=== PATIENT | female | born 1970 | race Hispanic/Latino ===

== ENCOUNTER 2018-08-25 10:03 | Emergency (ER) | payer OTHER ==
[~2018-08-25] VITALS: Ht 162.6 cm; Wt 72.6 kg
[2018-08-25] MEDS ORDERED: ONDANSETRON HCL INJ 2MG/ML 2ML 2 MG/ML VIAL IV STA (10:25)
[2018-08-25] MEDS ORDERED: KETOROLAC TROMETHAMINE 30 MG/ML VIAL IV STA (10:25)
[2018-08-25] MEDS ORDERED: SODIUM CHLORIDE 0.9% 1000ML 1,000 ML IV SCH ×2 (10:30→11:00)
[2018-08-25] MEDS ORDERED: ONDANSETRON HCL INJ 2MG/ML 2ML 2 MG/ML VIAL ONE (10:35)
[2018-08-25] MEDS ORDERED: KETOROLAC TROMETHAMINE 30 MG/ML VIAL ONE (10:35)
[2018-08-25] MEDS ORDERED: SODIUM CHLORIDE 0.9% 1000ML 1,000 ML ONE ×2 (10:36→11:27)
[2018-08-25] MEDS ORDERED: CEFTRIAXONE SOD 1 GM/NS 50 ML 50 ML IV ONE (11:15)
[2018-08-25] MEDS ORDERED: ACETAMINOPHEN 325 MG TAB PO ONE (11:15)
[2018-08-25] MEDS ORDERED: CEFTRIAXONE SOD 1 GM VIAL ONE (11:27)
[2018-08-25] MEDS ORDERED: ACETAMINOPHEN 325 MG TAB ONE (11:27)
[2018-08-25] MEDS ORDERED: BACTRIM DS TAB1 EACH PO (11:28)
[2018-08-25] MEDS ORDERED: ONDANSETRON ODT8 MG PO (11:28)
--- NOTE | 2018-08-25 13:21 | Diagnostic Imaging Report ---
EXAMINATION: CT of the abdomen and pelvis without contrast. TECHNIQUE: Spiral CT images of the abdomen and pelvis were performed from the lung bases to the lesser trochanters. No intravenous contrast was given per renal stone protocol. Coronal and sagittal reformatted images were obtained. COMPARISON: None. CLINICAL HISTORY:Flank pain DISCUSSION: ABSENCE OF INTRAVENOUS CONTRAST DECREASES SENSITIVITY FOR DETECTION OF FOCAL LESIONS AND VASCULAR PATHOLOGY. ABDOMEN/PELVIS: LOWER THORAX: Subsegmental atelectasis in the dependent lower lobes. HEPATOBILIARY:No focal hepatic lesions. No biliary ductal dilation. The gallbladder is normal. SPLEEN: No splenomegaly. PANCREAS: No focal masses or ductal dilatation. ADRENALS: No adrenal nodules. KIDNEYS/URETERS: Mild right perinephric fat stranding. Probable simple cyst in the lower pole, average internal attenuation 0-5 Hounsfield units. Scattered subcentimeter hypoattenuating foci within the right kidney cannot be characterized due to size and absence of intravenous contrast. Right extrarenal pelvis. No hydronephrosis. No renal, ureteral, or bladder calculi. PELVIC ORGANS/BLADDER: Urinary bladder is unremarkable. Uterus is not identified and has presumably been removed. No adnexal mass. PERITONEUM/RETROPERITONEUM: No ascites or pneumoperitoneum. LYMPH NODES: No pelvic sidewall, retroperitoneal, or mesenteric lymphadenopathy. Mildly prominent aortocaval lymph node is not enlarged by CT criteria. VESSELS: Limited evaluation without intravenous contrast. The abdominal aorta is nonaneurysmal. Mild atherosclerotic calcification. GI TRACT: The large bowel shows no distention or wall thickening. There are a few diverticula scattered along the descending and sigmoid colon without inflammatory change. The appendix is not definitively identified. No right lower quadrant inflammation. BONES AND SOFT TISSUES: No osseous destructive lesions. Degenerative disc changes and facet arthropathy of the lower lumbar spine. IMPRESSION: Right perinephric inflammation is a nonspecific finding, with considerations including recent passage of a ureteral calculus, as well as pyelonephritis, the latter of which is poorly evaluated in the absence of intravenous contrast. Correlate with urinalysis. Signed by: Dr. Kenton Venegas M.D. on 08/25/2018 1:17 PM
--- NOTE | 2018-08-25 13:26 | Diagnostic Imaging Report ---
EXAMINATION: PA and lateral views of the chest. COMPARISON: None CLINICAL HISTORY: Chest pain, fever DISCUSSION: Lines/tubes: None. Lungs: Minimal patchy opacities in the lower lobes compatible with subsegmental atelectasis. No airspace consolidation or effusion. Pleura: There is no pleural effusion or pneumothorax. Heart and mediastinum: The cardiomediastinal silhouette is normal. Bones and soft tissues: No acute bony abnormalities. Degenerative changes in the thoracic spine IMPRESSION: No acute cardiopulmonary abnormalities. Signed by: Dr. Kenton Venegas M.D. on 08/25/2018 1:23 PM
[2018-08-25 13:29] VITALS: BP 99/56
== END 2018-08-25 13:37 | disposition home or self-care (01) ==
LOC: FSED 10:03
DX: R50.9 Fever, unspecified (principal); R05 Cough; R10.13 Epigastric pain; N10 Acute pyelonephritis; E86.0 Dehydration; R94.31 Abnormal electrocardiogram [ECG] [EKG]
CPT/HCPCS: 71046; 74176; 80053; 81003; 84484; 85025; 85379; 87086; 87186; 93005; 99284; J0696 ×2; J1885; J2405; J7030